=== PATIENT | female | born 2005 | race Caucasian/White ===

== ENCOUNTER 2023-09-13 18:19 | Emergency (ER) | payer MEDICARE, MEDICAID, SELFPAY ==
[2023-09-13 18:23] VITALS: BP 138/91; PULSE 106; TEMP 37; O2SAT 97
--- NOTE | 2023-09-13 18:38 | PC.NURSE ---
patient reports she was recently treated for strep throat, is currently on augmentin for this. patient began having vomiting and right sided abdominal pain that began today with 8 episodes of vomiting after eating mashed potatoes. Patient sitting in bed in no distress, talking about her hair color as this nurse as she attempts to assess patient.
--- NOTE | 2023-09-13 19:14 | CT_ITS ---
The [place] [id number] Patient Name: YOHANNES ALCALA MRN: [id number] date: 2005 Sex: F Assigned Patient Location: ER Current Patient Location: ER Accession/Order Number: [id number] Exam Date: 09/13/2023 20:10 Report Date: 09/13/2023 20:49 At the request of: MELANIE MARKER Procedure: CT abdomen pelvis w con EXAM: CT abdomen pelvis w con HISTORY: RLQ abd pain COMPARISON: None. TECHNIQUE: IV contrast enhanced CT imaging of the abdomen and pelvis. This CT exam was performed using one or more of the following dose reduction techniques: Automated exposure control, adjustment of the mA and/or KV according to patient size, or use of iterative reconstruction technique. Unless otherwise stated, incidental findings do not require dedicated follow-up imaging. FINDINGS: There is bibasilar atelectasis. The heart size is normal. There is diffuse hepatic steatosis. The spleen, pancreas, adrenal glands, and kidneys are normal. The gallbladder is distended. The bowel is unobstructed. The appendix is normal. The bladder is distended and within normal limits. The bones are intact without acute abnormality. There is S-shaped scoliotic curvature of the thoracolumbar spine. CT/CT abdomen pelvis w con IMPRESSION: 1. No acute abnormality of the abdomen or pelvis. 2. Hepatic steatosis. Electronically authenticated by: CASTRO CORTES Date: 09/13/2023 20:49
--- NOTE | 2023-09-13 19:15 | ED.ABDPAIN1 ---
HPI - Abdominal Pain General Chief Complaint: Abdominal Pain Stated Complaint: Abdominal Pain Time Seen by Provider: 09/13/23 19:06 Source: patient Mode of arrival: ambulance Limitations: no limitations History of Present Illness HPI narrative: This 18-year-old female with a history of ADHD, hypertension and autism presents for evaluation of nausea vomiting and diarrhea that started earlier today. She states she has vomited approximately 8 times and had the same number of episodes of diarrhea. There was a small amount of blood in some of her diarrhea. She is having right lower quadrant abdominal pain. She tested positive for strep throat at [facility] last Tuesday and has been taking Augmentin. She has on day 6 of . She states she has never taken Augmentin before. Her sore throat is better. She is not having a fever. She doubts the possibility of . She has some mid lower abdominal pain as well. She has never had any abdominal surgery. Related Data Home Medications ?Medication ?Instructions ?Recorded ?Confirmed alprazolam 0.25 mg tablet mg 09/13/23 ammonium lactate 12 % topical cream applic topical 09/13/23 amoxicillin 500 mg capsule mg 09/13/23 amoxicillin 875 mg-potassium tab 09/13/23 clavulanate 125 mg tablet budesonide-formoterol HFA 160 inhalation 09/13/23 mcg-4.5 mcg/actuation aerosol inhaler (Symbicort) cetirizine 10 mg tablet (Allergy mg 09/13/23 Relief (cetirizine)) clobetasol 0.05 % topical cream topical 09/13/23 clonidine HCl 0.2 mg tablet mg 09/13/23 cyclobenzaprine 10 mg tablet mg 09/13/23 diphenhydramine HCl 25 mg capsule mg 09/13/23 (Banophen) doxycycline hyclate 100 mg capsule mg 09/13/23 escitalopram oxalate 10 mg tablet mg 09/13/23 escitalopram oxalate 20 mg tablet mg 09/13/23 fluconazole 150 mg tablet mg 09/13/23 gabapentin 100 mg capsule mg 09/13/23 gabapentin 300 mg capsule mg 09/13/23 hydrocortisone 2.5 % topical cream 09/13/23 with perineal applicator hydroxyzine HCl 25 mg tablet mg 09/13/23 ibuprofen 800 mg tablet mg 09/13/23 insulin aspart U-100 100 unit/mL subcut 09/13/23 (3 mL) subcutaneous pen (Novolog FlexPen U-100 Insulin aspart) insulin glargine 100 unit/mL (3 unit subcut 09/13/23 mL) subcutaneous pen (Lantus Solostar U-100 Insulin) insulin lispro 100 unit/mL subcut 09/13/23 subcutaneous pen lamotrigine 100 mg tablet mg 09/13/23 lamotrigine 25 mg tablet mg 09/13/23 lidocaine 5 % topical patch patch 09/13/23 lisdexamfetamine 50 mg capsule mg 09/13/23 (Vyvanse) melatonin 3 mg tablet mg 09/13/23 melatonin 3 mg tablet,extended mg PO 09/13/23 release metoclopramide HCl 10 mg tablet mg 09/13/23 metoclopramide HCl 5 mg tablet mg 09/13/23 modafinil 100 mg tablet mg 09/13/23 modafinil 200 mg tablet mg 09/13/23 nystatin 100,000 unit/gram topical topical 09/13/23 ointment nystatin 100,000 unit/gram topical topical 09/13/23 powder (Nystop) pantoprazole 40 mg tablet,delayed mg PO 09/13/23 release pregabalin 25 mg capsule mg 09/13/23 sumatriptan succinate 100 mg tablet mg PO 09/13/23 tiotropium bromide 1.25 inhalation 09/13/23 mcg/actuation mist for inhalation (Spiriva Respimat) tizanidine 2 mg tablet mg 09/13/23 topiramate 100 mg tablet mg 09/13/23 trazodone 50 mg tablet mg 09/13/23 Allergies Allergy/AdvReac Type Severity Reaction Status Date / Time cefoperazone Allergy Mild Hives Verified 09/13/23 18:23 Review of Systems ROS Status of ROS 10 or more systems reviewed and unremarkable except as noted in history and below Exam Narrative Exam Narrative: Vital signs and Nursing Notes reviewed: Patient is afebrile, she is tachycardic with a pulse of 106, blood pressure is normal, she is not hypoxic with pulse ox of 97% on room air General: Awake, alert, oriented, no acute distress, lying comfortably on the stretcher HEENT: Normocephalic atraumatic, mucous membranes are moist and pink, eyes are clear, normal conjunctiva, vision is grossly intact, posterior pharynx is normal in appearance. There is no swelling of the tongue, uvular pharyngeal soft tissues. No pharyngeal exudate or peritonsillar abscess appreciated Neck: Supple, no meningeal signs, no anterior or posterior cervical lymphadenopathy Chest: Lungs are clear to auscultation with good air entry, there is no wheezing rhonchi or rales appreciated no accessory muscle use, patient is speaking in complete sentences-no chest wall tenderness to palpation CVS: Regular rate and rhythm S1-S2, no murmurs rubs or gallops, pulses are brisk and equal bilaterally ABD: Soft, diffusely tender, localizes to the left lower quadrant and left right lower quadrant, negative Rovsing exam, bowel sounds are normal Extremities: Moving all extremities, no lower extremity tenderness or swelling noted, negative Homans' sign, pulses are brisk and equal bilaterally Skin: Normal in appearance without rash,pallor, petechiae or purpura Neuro: No focal deficits Psych: Mildly anxious, laughing inappropriately Constitutional Vital Signs, click to edit/add: Last Vital Signs Temp 98.6 F 09/13/23 18:23 Pulse 106 H 09/13/23 18:23 Resp 17 09/13/23 18:23 BP 138/91 09/13/23 18:23 Pulse Ox 97 09/13/23 18:23 Course Vital Signs Vital signs: Vital Signs Temperature 98.6 F 09/13/23 18:23 Pulse Rate 106 H 09/13/23 18:23 Respiratory Rate 17 09/13/23 18:23 Blood Pressure 138/91 09/13/23 18:23 Pulse Oximetry 97 09/13/23 18:23 Temperature 98.6 F 09/13/23 18:23 Pulse Rate 106 H 09/13/23 18:23 Respiratory Rate 17 09/13/23 18:23 Blood Pressure 138/91 09/13/23 18:23 Pulse Oximetry 97 09/13/23 18:23 MDM - Abdominal Pain MDM Narrative Medical decision making narrative: This 18-year-old female, nondrinker, non-smoker presents for evaluation of nausea, vomiting, diarrhea and right lower quadrant abdominal pain. She has not had a fever or cough. She is currently on day 6 out of 10 of Augmentin for strep throat. She states she has not had Augmentin in the past. She denies the possibility of . She states she cannot keep anything down. In the emergency department an IV was placed and she was medicated with IV fluids Zofran and Toradol. She denied any relief of her pain from this. She was then medicated with Levsin. Routine labs were ordered and are reviewed. Her white count is minimally elevated at 13.7 with a normal hemoglobin. Lipase is minimally elevated at 99 and alkaline phosphatase is mildly elevated at 144. The remainder of her liver function enzymes are normal. Her glucose is minimally elevated at 195. She does have a history of diabetes. There is no sign of DKA. Lactic acid was minimally elevated at 2.2, likely related to her vomiting and diarrhea. Urine was negative for infection. CT scan of the abdomen pelvis was ordered with IV contrast to rule out appendicitis or other etiology for her pain. The CT scan shows fatty liver disease and is otherwise normal. She does have a scoliotic curve which she was aware of. The results of the CT scan were discussed with her and she was given a copy of her scan for her records. She will be discharged home with prescription for Zofran and Bentyl. She was encouraged to drink plenty of clear liquids and follow-up closely with her family physician. Medical Records Medical records narrative: The [address] [address] [address] Scan Report Signed Patient: YOHANNES ALCALA MR#: [id number] : 2005 Acct:[id number] Age/Sex: 18 / F ADM Date: 09/13/23 Loc: ER Attending Dr: Ordering Physician: Mleanie Zamora Date of Service: 09/13/23 Procedure(s): CT abdomen pelvis w con Accession Number(s): [id number] cc: Ritu Chambers ND~ The [address] [address] Patient Name: YOHANNES ALCALA MRN: [id number] date: 2005 Sex: F Assigned Patient Location: ER Current Patient Location: ER Accession/Order Number: [id number] Exam Date: 09/13/2023 20:10 Report Date: 09/13/2023 20:49 At the request of: MELANIE ZAMORA Procedure: CT abdomen pelvis w con EXAM: CT abdomen pelvis w con HISTORY: RLQ abd pain COMPARISON: None. TECHNIQUE: IV contrast enhanced CT imaging of the abdomen and pelvis. This CT exam was performed using one or more of the following dose reduction techniques: Automated exposure control, adjustment of the mA and/or KV according to patient size, or use of iterative reconstruction technique. Unless otherwise stated, incidental findings do not require dedicated follow-up imaging. FINDINGS: There is bibasilar atelectasis. The heart size is normal. There is diffuse hepatic steatosis. The spleen, pancreas, adrenal glands, and kidneys are normal. The gallbladder is distended. The bowel is unobstructed. The appendix is normal. The bladder is distended and within normal limits. The bones are intact without acute abnormality. There is S-shaped scoliotic curvature of the thoracolumbar spine. CT/CT abdomen pelvis w con IMPRESSION: 1. No acute abnormality of the abdomen or pelvis. 2. Hepatic steatosis. Lab Data Labs: Lab Results 09/13/23 09/13/23 Range/Units 19:24 19:27 WBC 13.7 H (4.0-11.0) 10^3/uL RBC 5.81 H (4.20-5.40) 10^6/uL Hgb 13.0 (12.0-16.0) g/dL Hct 42.1 (36.0-48.0) % MCV 72.5 L (81.0-99.0) fL MCH 22.4 L (26.7-34.0) pg MCHC 30.9 (29.9-35.2) g/dL RDW 14.8 (11.0-15.0) % Plt Count 421 (150-450) 10^3/uL MPV 8.9 L (9.5-13.5) fL Neut % (Auto) 76.0 H (43.0-75.0) % Lymph % (Auto) 16.5 L (20.5-60.0) % [place] % (Auto) 4.5 (1.7-12.0) % Eos % (Auto) 1.4 (0.9-7.0) % Baso % (Auto) 0.6 (0.2-2.0) % Neut # (Auto) 10.4 H (1.4-6.5) 10^3/uL Lymph # (Auto) 2.3 (1.2-3.8) 10^3/uL [place] # (Auto) 0.6 (0.3-0.8) 10^3/uL Eos # (Auto) 0.2 (0.0-0.7) 10^3/uL Baso # (Auto) 0.1 (0.0-0.1) 10^3/uL Abs Immat Gran (auto) 0.13 H (0.00-0.03) 10^3/uL Imm/Tot Granulo (auto) 1.0 H (0.0-0.5) % Sodium 137 (136-145) mmol/L Potassium 3.4 L (3.5-5.1) mmol/L Chloride 103 (98-107) mmol/L Carbon Dioxide 23.2 (21.0-32.0) mmol/L Anion Gap 14.2 BUN 9.0 (7.0-18.0) mg/dL Creatinine 0.87 (0.55-1.02) mg/dL Est GFR ( Amer) >60 (>=60) Est GFR (Non-Af Amer) >60 (>=60) BUN/Creatinine Ratio 10.3 Glucose 195 H (74-106) mg/dL Lactate 2.2 H* (0.4-2.0) mmol/L Calcium 9.1 (8.5-10.1) mg/dL Total Bilirubin 0.3 (0.2-1.0) mg/dL AST 19 (15-37) U/L ALT 39 (14-59) U/L Alkaline Phosphatase 144 H (46-116) U/L Troponin I High Sens <4.0 L (4.0-51.3) pg/mL Total Protein 8.2 (6.4-8.2) g/dL Albumin 3.4 (3.4-5.0) g/dL Globulin 4.8 g/dL Albumin/Globulin Ratio 0.7 Lipase 99.0 H (16.0-77.0) U/L Urine Color Lt. yellow (YELLOW) Urine Clarity Clear (CLEAR) Urine pH 6.0 (5.0-9.0) Ur Specific [place] 1.020 (1.005-1.025) Urine Protein Negative (NEG/TRACE) mg/dL Urine Glucose (UA) Negative (NEGATIVE) mg/dL Urine Ketones Negative (NEGATIVE) mg/dL Urine Occult Blood Trace-i (NEGATIVE) Urine Nitrite Negative (NEGATIVE) Urine Bilirubin Negative (NEGATIVE) Urine Urobilinogen 0.2 (0.2-1.0) EU/dL Ur Leukocyte Esterase Negative (NEGATIVE) Urine RBC 0-2 (0-2) #/HPF Urine WBC 0-2 A (NONE SEEN) #/HPF Ur Squamous Epith Cells Moderate A (NONE/RARE) #/LPF Ur Transition Epith Cell Few A (NONE SEEN) #/LPF Urine Crystals None seen (None Seen) #/HPF Urine Bacteria None seen (NONE SEEN) #/HPF Urine Casts None seen (NONE SEEN) #/LPF Urine Mucus None seen (NONE SEEN) Ur Culture Indicated? No Urine HCG, Qual Negative (NEGATIVE) Discharge Plan Discharge Stand Alone Forms: Portal Instructions Chief Complaint: Abdominal Pain Clinical Impression: Gastroenteritis, Fatty liver disease, nonalcoholic Patient Disposition: Home, Self-Care Time of Disposition Decision: 21:18 Condition: Good Prescriptions / Home Meds: No Action cyclobenzaprine 10 mg tablet amoxicillin 500 mg capsule doxycycline hyclate 100 mg capsule tizanidine 2 mg tablet trazodone 50 mg tablet cetirizine [Allergy Relief (cetirizine)] 10 mg tablet ibuprofen 800 mg tablet nystatin 100,000 unit/gram ointment TOPICAL fluconazole 150 mg tablet sumatriptan succinate 100 mg tablet PO clobetasol 0.05 % cream TOPICAL melatonin 3 mg tablet lamotrigine 25 mg tablet hydrocortisone 2.5 % cream with perineal applicator clonidine HCl 0.2 mg tablet alprazolam 0.25 mg tablet modafinil 200 mg tablet metoclopramide HCl 5 mg tablet pantoprazole 40 mg tablet,delayed release (DR/EC) PO diphenhydramine HCl [Banophen] 25 mg capsule lidocaine 5 % adhesive patch,medicated gabapentin 300 mg capsule hydroxyzine HCl 25 mg tablet ammonium lactate 12 % cream TOPICAL gabapentin 100 mg capsule nystatin [Nystop] 100,000 unit/gram powder TOPICAL topiramate 100 mg tablet lamotrigine 100 mg tablet metoclopramide HCl 10 mg tablet amoxicillin-pot clavulanate 875-125 mg tablet modafinil 100 mg tablet melatonin 3 mg tablet extended release PO insulin lispro 100 unit/mL insulin pen SUBCUT escitalopram oxalate 10 mg tablet escitalopram oxalate 20 mg tablet insulin aspart U-100 [Novolog FlexPen U-100 Insulin] 100 unit/mL (3 mL) insulin pen SUBCUT pregabalin 25 mg capsule lisdexamfetamine [Vyvanse] 50 mg capsule budesonide-formoterol [Symbicort] 160-4.5 mcg/actuation HFA aerosol inhaler INHALATION insulin glargine [Lantus Solostar U-100 Insulin] 100 unit/mL (3 mL) insulin pen SUBCUT Spiriva Respimat 1.25 mcg/actuation mist INHALATION Print Language: Latvian Instructions: Acute Nausea and Vomiting (ED), Acute Diarrhea (ED), Non-Alcoholic Fatty Liver Disease (ED) Referrals: Ritu Chambers ND [Primary Care Provider] - 1 week
[2023-09-13 19:34] LABS: Basophils Absolute Auto 0.1 10^3/uL (0.0-0.1); Basophils Percent Auto 0.6 % (0.2-2.0); Eosinophils Absolute Auto 0.2 10^3/uL (0.0-0.7); Eosinophils Percent Auto 1.4 % (0.9-7.0); Hematocrit 42.1 % (36.0-48.0); Immature Granulocytes Abs Auto 0.13 10^3/uL (0.00-0.03); Lymphocytes Absolute Auto 2.3 10^3/uL (1.2-3.8); Lymphocytes Percent Auto 16.5 % (20.5-60.0); Mean Corpuscular HGB Conc 30.9 g/dL (29.9-35.2); Mean Corpuscular Hemoglobin 22.4 pg (26.7-34.0); Mean Corpuscular Volume 72.5 fL (81.0-99.0); Mean Platelet Volume 8.9 fL (9.5-13.5); Monocytes Absolute Auto 0.6 10^3/uL (0.3-0.8); Monocytes Percent Auto 4.5 % (1.7-12.0); Neutrophils Absolute Auto 10.4 10^3/uL (1.4-6.5); Platelet Count 421 10^3/uL (150-450); Red Blood Count 5.81 10^6/uL (4.20-5.40); Red Cell Distribution Width 14.8 % (11.0-15.0); White Blood Count 13.7 10^3/uL (4.0-11.0)
[2023-09-13 19:35] LABS: Bilirubin Urine NEGATIVE (NEGATIVE); Blood Urine TRACE-I (NEGATIVE); Clarity Urine CLEAR (CLEAR); Color Urine LT. YELLOW (YELLOW); Glucose Urine UA NEGATIVE (NEGATIVE); Ketones Urine NEGATIVE (NEGATIVE); Leukocyte Esterase Urine NEGATIVE (NEGATIVE); Nitrite Urine NEGATIVE (NEGATIVE); Protein Urine NEGATIVE (NEG/TRACE); Urobilinogen Urine 0.2 EU/dL (0.2-1.0)
[2023-09-13 19:39] LABS: Urine Microscopic Indicated YES
[2023-09-13 19:41] LABS: Bacteria Urine NONE SEEN #/HPF (NONE SEEN); Cast Seen? NONE SEEN #/LPF (NONE SEEN); Crystals Seen? None Seen #/HPF (None Seen); Mucus Urine NONE SEEN (NONE SEEN); RBC Urine 0-2 #/HPF (0-2); Squamous Epithelial Cell Urine MODERATE #/LPF (NONE/RARE); Transitional Epi Cells Urine FEW #/LPF (NONE SEEN); Urine Culture Indicated NO; WBC Urine 0-2 #/HPF (NONE SEEN)
[2023-09-13] MEDS: ONDANSETRON PF 4 MG/2 ML VIAL IV (19:46)
[2023-09-13] MEDS: 0.9 % SODIUM CHLORIDE 1,000 ML 999 ML IV (19:46)
[2023-09-13 19:57] LABS: Alanine Aminotransferase 39 U/L (14-59); Albumin Globulin Ratio 0.7; Albumin Level 3.4 g/dL (3.4-5.0); Alkaline Phosphatase 144 U/L (46-116); Anion Gap 14.2; Aspartate Amino Transferase 19 U/L (15-37); BUN Creatinine Ratio 10.3; Bilirubin Total 0.3 mg/dL (0.2-1.0); Calcium 9.1 mg/dL (8.5-10.1); Carbon Dioxide 23.2 mmol/L (21.0-32.0); Chloride 103 mmol/L (98-107); Estimated GFR (African America >60 (>=60); Estimated GFR (Non-African Ame >60 (>=60); Globulin 4.8 g/dL; Glucose 195 mg/dL (74-106); Potassium 3.4 mmol/L (3.5-5.1); Sodium 137 mmol/L (136-145); Total Protein 8.2 g/dL (6.4-8.2)
[2023-09-13 20:00] LABS: HCG Qualitative Urine* NEGATIVE (NEGATIVE); Internal Control Within Normal Limits
[2023-09-13 20:00] LABS: Troponin I High Sensitivity <4.0 pg/mL (4.0-51.3)
[2023-09-13 20:03] LABS: Lactate/Lactic Acid 2.2 mmol/L (0.4-2.0)
[2023-09-13] MEDS: KETOROLAC TROMETHAMINE 30 MG/ML VIAL IVP (20:03)
[2023-09-13] MEDS: HYOSCYAMINE SULFATE 0.125 MG TAB.SUBL SL (20:52)
[2023-09-13 21:28] VITALS: BP 144/88; PULSE 72; O2SAT 100
== END 2023-09-13 21:30 | disposition home or self-care (01) ==
PROVIDERS: Emergency Provider Emergency Medicine; PCP Student in an Organized Health Care Education/Training Program
DX: K52.9 Noninfective gastroenteritis and colitis, unspecified (principal); K76.0 Fatty (change of) liver, not elsewhere classified; F90.9 Attention-deficit hyperactivity disorder, unspecified type; I10 Essential (primary) hypertension; F84.0 Autistic disorder
CPT/HCPCS: 36415; 74177; 80053; 81001; 83605; 83690; 84484; 84703; 85025; 96361; 96374; 96375; 99285; J1885; J2405; Q9967

== ENCOUNTER 2024-05-23 20:04 | Emergency (ER) | payer MEDICARE, MEDICAID, SELFPAY ==
[2024-05-23 20:07] VITALS: BP 122/74; PULSE 84; TEMP 37; O2SAT 98; BMI 38.1
--- NOTE | 2024-05-23 20:07 | ECG_ITS ---
The [facility] Test Date: 2024-05-23 Pat Name: YOHANNES ALCALA Department: Room: - Gender: Female Probate Lawyer: : 2005 Requested By: Order Number: [id number] Reading MD: GEE EUBANKS Measurements Intervals Ward Rate: 85 P: 32 CA: 152 QRS: 50 QRSD: 100 T: 90 QT: 374 QTc: 416 Interpretive Statements 1100 Sinus rhythm 4068 Nonspecific [place] abnormality 9130 borderline ECG No previous ECG available for comparison Electronically Signed On 05-24-2024 6:48:26 EST by GEE EUBANKS
[2024-05-23 20:10] VITALS: PULSE 85
--- NOTE | 2024-05-23 20:13 | ED.CHESTPAI1 ---
Documented by User: TORY Bhatti 05/23/24 21:08 HPI - Chest Pain General Chief Complaint: Chest Pain Stated Complaint: chest pain Time Seen by Provider: 05/23/24 20:07 Source: patient Mode of arrival: ambulance Limitations: no limitations History of Present Illness HPI narrative: Patient is a 19-year-old female who presents to the emergency department by EMS from [place] where she lives for evaluation of chest pain. EMS states privately in the hallway that the patient has called 911 to take her to [facility] almost every day this month for chest pain. They are in process to have a meeting with her with the director of EMS regarding abuse of EMS resources. She apparently went to [place] emergency department yesterday but was kept in the lobby where she had labs and an EKG performed. She felt she was not treated appropriately because she waited so long to be seen. She ended up leaving without being evaluated by provider. She reports the pain in the center of her chest associated with shortness of breath. She has had no fevers, cough, congestion. She denies tobacco abuse. She has no concern for . She states the pain radiates into both arms. She has a history of anxiety but does not know if this feels similar to previous anxiety. She has an appointment with her psychiatrist for new medications tomorrow. Related Data Home Medications ?Medication ?Instructions ?Recorded ?Confirmed alprazolam 0.25 mg tablet mg 09/13/23 ammonium lactate 12 % topical cream applic topical 09/13/23 amoxicillin 500 mg capsule mg 09/13/23 amoxicillin 875 mg-potassium tab 09/13/23 clavulanate 125 mg tablet budesonide-formoterol HFA 160 inhalation 09/13/23 mcg-4.5 mcg/actuation aerosol inhaler (Symbicort) cetirizine 10 mg tablet (Allergy mg 09/13/23 Relief (cetirizine)) clobetasol 0.05 % topical cream topical 09/13/23 clonidine HCl 0.2 mg tablet mg 09/13/23 cyclobenzaprine 10 mg tablet mg 09/13/23 diphenhydramine HCl 25 mg capsule mg 09/13/23 (Banophen) doxycycline hyclate 100 mg capsule mg 09/13/23 escitalopram oxalate 10 mg tablet mg 09/13/23 escitalopram oxalate 20 mg tablet mg 09/13/23 fluconazole 150 mg tablet mg 09/13/23 gabapentin 100 mg capsule mg 09/13/23 gabapentin 300 mg capsule mg 09/13/23 hydrocortisone 2.5 % topical cream 09/13/23 with perineal applicator hydroxyzine HCl 25 mg tablet mg 09/13/23 ibuprofen 800 mg tablet mg 09/13/23 insulin aspart U-100 100 unit/mL subcut 09/13/23 (3 mL) subcutaneous pen (Novolog FlexPen U-100 Insulin aspart) insulin glargine 100 unit/mL (3 unit subcut 09/13/23 mL) subcutaneous pen (Lantus Solostar U-100 Insulin) insulin lispro 100 unit/mL subcut 09/13/23 subcutaneous pen lamotrigine 100 mg tablet mg 09/13/23 lamotrigine 25 mg tablet mg 09/13/23 lidocaine 5 % topical patch patch 09/13/23 lisdexamfetamine 50 mg capsule mg 09/13/23 (Vyvanse) melatonin 3 mg tablet mg 09/13/23 melatonin 3 mg tablet,extended mg PO 09/13/23 release metoclopramide HCl 10 mg tablet mg 09/13/23 metoclopramide HCl 5 mg tablet mg 09/13/23 modafinil 100 mg tablet mg 09/13/23 modafinil 200 mg tablet mg 09/13/23 nystatin 100,000 unit/gram topical topical 09/13/23 ointment nystatin 100,000 unit/gram topical topical 09/13/23 powder (Nystop) pantoprazole 40 mg tablet,delayed mg PO 09/13/23 release pregabalin 25 mg capsule mg 09/13/23 sumatriptan succinate 100 mg tablet mg PO 09/13/23 tiotropium bromide 1.25 inhalation 09/13/23 mcg/actuation mist for inhalation (Spiriva Respimat) tizanidine 2 mg tablet mg 09/13/23 topiramate 100 mg tablet mg 09/13/23 trazodone 50 mg tablet mg 09/13/23 Allergies Allergy/AdvReac Type Severity Reaction Status Date / Time cefoperazone Allergy Mild Hives Verified 05/23/24 20:07 Review of Systems ROS Constitutional Denies: fever or chills Ears, nose, mouth, and throat Denies: throat pain or nasal congestion Cardiovascular Reports: chest pain Respiratory Reports: shortness of breath; Denies: cough Gastrointestinal Denies: nausea or vomiting Musculoskeletal Denies: back pain Integumentary/Breast Denies: rash Neurological Denies: numbness in extremities or weakness in extremities Hematologic/Lymphatic Denies: easy bruising or easy bleeding [facility] Social History Little interest or pleasure in doing things: not at all Feeling down, depressed, or hopeless: not at all Exam Narrative Exam Narrative: Gen.: Awake, alert, in no distress Head: Normocephalic, atraumatic ENT: Moist mucous membranes Respiratory: No respiratory distress, lungs clear bilaterally Cardio: Regular rate and rhythm Gastrointestinal: Abdomen is soft, nondistended and nontender to palpation Extremities: Moves extremities equally, no injuries noted Psych: Normal mood and affect Neuro: No focal neuro deficit Skin: Warm, dry, intact Constitutional Vital Signs, click to edit/add: Last Vital Signs Temp 98.6 F 05/23/24 20:07 Pulse 84 05/23/24 20:07 Resp 16 05/23/24 20:07 BP 122/74 05/23/24 20:07 Pulse Ox 98 05/23/24 20:07 O2 Del Method Room Air 05/23/24 20:07 Course Vital Signs Vital signs: Vital Signs Temperature 98.6 F 05/23/24 20:07 Pulse Rate 84 05/23/24 20:07 Respiratory Rate 16 05/23/24 20:07 Blood Pressure 122/74 05/23/24 20:07 Pulse Oximetry 98 05/23/24 20:07 Oxygen Delivery Method Room Air 05/23/24 20:07 Temperature 98.6 F 05/23/24 20:07 Pulse Rate 84 05/23/24 20:07 Respiratory Rate 16 05/23/24 20:07 Blood Pressure 122/74 05/23/24 20:07 Pulse Oximetry 98 05/23/24 20:07 Oxygen Delivery Method Room Air 05/23/24 20:07 MDM - Chest Pain MDM Narrative Medical decision making narrative: 2106: EKG obtained, laboratory studies reviewed and noted within normal limits. IV access is being attempted to determine if the patient can have a scan of her chest if needed. Records obtained from [place]. GI cocktail ordered for the patient. Case is turned over to attending physician at this time for disposition. SHARED APC VISIT, PHYSICIAN ATTESTATION: [id number] I performed a substantive part of the MDM during the patient?s E/M visit. I personally evaluated and examined the patient. I personally made or approved the documented management plan and acknowledge its risk of complications. Medical Records Data Attestation: I reviewed the patient's medical records. Lab Data Attestation: I reviewed the patient's lab results. Labs: Lab Results 05/23/24 05/23/24 Range/Units 20:20 20:40 WBC 9.4 (4.0-11.0) 10^3/uL RBC 5.29 (4.20-5.40) 10^6/uL Hgb 11.6 L (12.0-16.0) g/dL Hct 38.7 (36.0-48.0) % MCV 73.2 L (81.0-99.0) fL MCH 21.9 L (26.7-34.0) pg MCHC 30.0 (29.9-35.2) g/dL RDW 15.8 H (11.0-15.0) % Plt Count 326 (150-450) 10^3/uL MPV 9.0 L (9.5-13.5) fL Neut % (Auto) 67.6 (43.0-75.0) % Lymph % (Auto) 21.4 (20.5-60.0) % [place] % (Auto) 6.4 (1.7-12.0) % Eos % (Auto) 3.0 (0.9-7.0) % Baso % (Auto) 0.7 (0.2-2.0) % Neut # (Auto) 6.3 (1.4-6.5) 10^3/uL Lymph # (Auto) 2.0 (1.2-3.8) 10^3/uL [place] # (Auto) 0.6 (0.3-0.8) 10^3/uL Eos # (Auto) 0.3 (0.0-0.7) 10^3/uL Baso # (Auto) 0.1 (0.0-0.1) 10^3/uL Abs Immat Gran (auto) 0.08 H (0.00-0.03) 10^3/uL Imm/Tot Granulo (auto) 0.9 H (0.0-0.5) % PT 10.7 (9.0-11.6) sec INR 1.01 VBG pH 7.383 (7.330-7.430) VBG pCO2 40.6 (40.0-52.0) mmHg Sodium 140 (136-145) mmol/L Potassium 4.1 (3.5-5.1) mmol/L Chloride 105 (98-107) mmol/L Carbon Dioxide 24.4 (21.0-32.0) mmol/L Anion Gap 14.7 BUN 12.0 (7.0-18.0) mg/dL Creatinine 0.80 (0.55-1.02) mg/dL Est GFR ( Amer) >60 (>=60 mL/min/1.73m^2) Est GFR (Non-Af Amer) >60 (>=60 mL/min/1.73m^2) BUN/Creatinine Ratio 15.0 Glucose 153 H (74-106) mg/dL Lactate 1.5 (0.4-2.0) mmol/L Calcium 9.1 (8.5-10.1) mg/dL Magnesium 1.9 (1.8-2.4) mg/dL Total Bilirubin 0.2 (0.2-1.0) mg/dL AST 27 (15-37) U/L ALT 31 (14-59) U/L Alkaline Phosphatase 110 (46-116) U/L Troponin I High Sens <4.0 L (4.0-51.3) pg/mL NT-Pro-B Natriuret Pep 16.0 (<=450.0) pg/mL Total Protein 7.4 (6.4-8.2) g/dL Albumin 3.1 L (3.4-5.0) g/dL Globulin 4.3 g/dL Albumin/Globulin Ratio 0.7 TSH 1.461 (0.358-3.740) uIU/mL Urine Color Lt. yellow (YELLOW) Urine Clarity Cloudy A (CLEAR) Urine pH 7.5 (5.0-9.0) Ur Specific Bascom 1.015 (1.005-1.025) Urine Protein Trace (NEG/TRACE) mg/dL Urine Glucose (UA) Negative (NEGATIVE) mg/dL Urine Ketones Negative (NEGATIVE) mg/dL Urine Occult Blood Large A (NEGATIVE) Urine Nitrite Negative (NEGATIVE) Urine Bilirubin Negative (NEGATIVE) Urine Urobilinogen 0.2 (0.2-1.0) EU/dL Ur Leukocyte Esterase Negative (NEGATIVE) Urine RBC 50-75 A (0-2) #/HPF Urine WBC 0-2 A (NONE SEEN) #/HPF Ur Squamous Epith Cells Few A (NONE/RARE) #/LPF Urine Crystals Seen A (None Seen) #/HPF Amorphous Sediment Many Urine Bacteria Moderate A (NONE SEEN) #/HPF Urine Casts None seen (NONE SEEN) #/LPF Urine Mucus None seen (NONE SEEN) Ur Culture Indicated? Yes-[facility] [place] Acetone, Qual Negative (NEGATIVE) ECG Data Attestation: I personally reviewed and interpreted this ECG as follows: (Normal sinus rhythm at a rate of 85, no acute ST elevation or ectopy. EKG reviewed by attending physician) Discharge Plan Discharge Chief Complaint: Chest Pain Clinical Impression: Chest pain Patient Disposition: Home, Self-Care Time of Disposition Decision: 22:25 Condition: Good Mode of Transportation: Private Vehicle Prescriptions / Home Meds: No Action cyclobenzaprine 10 mg tablet amoxicillin 500 mg capsule doxycycline hyclate 100 mg capsule tizanidine 2 mg tablet trazodone 50 mg tablet cetirizine [Allergy Relief (cetirizine)] 10 mg tablet ibuprofen 800 mg tablet nystatin 100,000 unit/gram ointment TOPICAL fluconazole 150 mg tablet sumatriptan succinate 100 mg tablet PO clobetasol 0.05 % cream TOPICAL melatonin 3 mg tablet lamotrigine 25 mg tablet hydrocortisone 2.5 % cream with perineal applicator clonidine HCl 0.2 mg tablet alprazolam 0.25 mg tablet modafinil 200 mg tablet metoclopramide HCl 5 mg tablet pantoprazole 40 mg tablet,delayed release (DR/EC) PO diphenhydramine HCl [Banophen] 25 mg capsule lidocaine 5 % adhesive patch,medicated gabapentin 300 mg capsule hydroxyzine HCl 25 mg tablet ammonium lactate 12 % cream TOPICAL gabapentin 100 mg capsule nystatin [Nystop] 100,000 unit/gram powder TOPICAL topiramate 100 mg tablet lamotrigine 100 mg tablet metoclopramide HCl 10 mg tablet amoxicillin-pot clavulanate 875-125 mg tablet modafinil 100 mg tablet melatonin 3 mg tablet extended release PO insulin lispro 100 unit/mL insulin pen SUBCUT escitalopram oxalate 10 mg tablet escitalopram oxalate 20 mg tablet insulin aspart U-100 [Novolog FlexPen U-100 Insulin] 100 unit/mL (3 mL) insulin pen SUBCUT pregabalin 25 mg capsule lisdexamfetamine [Vyvanse] 50 mg capsule budesonide-formoterol [Symbicort] 160-4.5 mcg/actuation HFA aerosol inhaler INHALATION insulin glargine [Lantus Solostar U-100 Insulin] 100 unit/mL (3 mL) insulin pen SUBCUT Spiriva Respimat 1.25 mcg/actuation mist INHALATION Print Language: Liberian Instructions: Chest Pain (ED) Additional Instructions: Follow-up with your PCP Referrals: Ritu Chambers ND [Primary Care Provider] - 1 week Documented by User: Cristhian Chance MD 05/23/24 22:26 HPI - Chest Pain General Chief Complaint: Chest Pain Stated Complaint: chest pain Time Seen by Provider: 05/23/24 20:07 Related Data Home Medications ?Medication ?Instructions ?Recorded ?Confirmed alprazolam 0.25 mg tablet mg 09/13/23 ammonium lactate 12 % topical cream applic topical 09/13/23 amoxicillin 500 mg capsule mg 09/13/23 amoxicillin 875 mg-potassium tab 09/13/23 clavulanate 125 mg tablet budesonide-formoterol HFA 160 inhalation 09/13/23 mcg-4.5 mcg/actuation aerosol inhaler (Symbicort) cetirizine 10 mg tablet (Allergy mg 09/13/23 Relief (cetirizine)) clobetasol 0.05 % topical cream topical 09/13/23 clonidine HCl 0.2 mg tablet mg 09/13/23 cyclobenzaprine 10 mg tablet mg 09/13/23 diphenhydramine HCl 25 mg capsule mg 09/13/23 (Banophen) doxycycline hyclate 100 mg capsule mg 09/13/23 escitalopram oxalate 10 mg tablet mg 09/13/23 escitalopram oxalate 20 mg tablet mg 09/13/23 fluconazole 150 mg tablet mg 09/13/23 gabapentin 100 mg capsule mg 09/13/23 gabapentin 300 mg capsule mg 09/13/23 hydrocortisone 2.5 % topical cream 09/13/23 with perineal applicator hydroxyzine HCl 25 mg tablet mg 09/13/23 ibuprofen 800 mg tablet mg 09/13/23 insulin aspart U-100 100 unit/mL subcut 09/13/23 (3 mL) subcutaneous pen (Novolog FlexPen U-100 Insulin aspart) insulin glargine 100 unit/mL (3 unit subcut 09/13/23 mL) subcutaneous pen (Lantus Solostar U-100 Insulin) insulin lispro 100 unit/mL subcut 09/13/23 subcutaneous pen lamotrigine 100 mg tablet mg 09/13/23 lamotrigine 25 mg tablet mg 09/13/23 lidocaine 5 % topical patch patch 09/13/23 lisdexamfetamine 50 mg capsule mg 09/13/23 (Vyvanse) melatonin 3 mg tablet mg 09/13/23 melatonin 3 mg tablet,extended mg PO 09/13/23 release metoclopramide HCl 10 mg tablet mg 09/13/23 metoclopramide HCl 5 mg tablet mg 09/13/23 modafinil 100 mg tablet mg 09/13/23 modafinil 200 mg tablet mg 09/13/23 nystatin 100,000 unit/gram topical topical 09/13/23 ointment nystatin 100,000 unit/gram topical topical 09/13/23 powder (Nystop) pantoprazole 40 mg tablet,delayed mg PO 09/13/23 release pregabalin 25 mg capsule mg 09/13/23 sumatriptan succinate 100 mg tablet mg PO 09/13/23 tiotropium bromide 1.25 inhalation 09/13/23 mcg/actuation mist for inhalation (Spiriva Respimat) tizanidine 2 mg tablet mg 09/13/23 topiramate 100 mg tablet mg 09/13/23 trazodone 50 mg tablet mg 09/13/23 Allergies Allergy/AdvReac Type Severity Reaction Status Date / Time cefoperazone Allergy Mild Hives Verified 05/23/24 20:07 PFSH PFSH Social History Little interest or pleasure in doing things: not at all Feeling down, depressed, or hopeless: not at all Exam Constitutional Vital Signs, click to edit/add: Last Vital Signs Temp 98.6 F 05/23/24 20:07 Pulse 84 05/23/24 20:07 Resp 16 05/23/24 20:07 BP 122/74 05/23/24 20:07 Pulse Ox 98 05/23/24 20:07 O2 Del Method Room Air 05/23/24 20:07 Course Vital Signs Vital signs: Vital Signs Temperature 98.6 F 05/23/24 20:07 Pulse Rate 84 05/23/24 20:07 Respiratory Rate 16 05/23/24 20:07 Blood Pressure 122/74 05/23/24 20:07 Pulse Oximetry 98 05/23/24 20:07 Oxygen Delivery Method Room Air 05/23/24 20:07 Temperature 98.6 F 05/23/24 20:07 Pulse Rate 84 05/23/24 20:07 Respiratory Rate 16 05/23/24 20:07 Blood Pressure 122/74 05/23/24 20:07 Pulse Oximetry 98 05/23/24 20:07 Oxygen Delivery Method Room Air 05/23/24 20:07 MDM - Chest Pain MDM Narrative Medical decision making narrative: 2106: EKG obtained, laboratory studies reviewed and noted within normal limits. IV access is being attempted to determine if the patient can have a scan of her chest if needed. Records obtained from [place]. GI cocktail ordered for the patient. Case is turned over to attending physician at this time for disposition. SHARED APC VISIT, PHYSICIAN ATTESTATION: [id number] I performed a substantive part of the MDM during the patient?s E/M visit. I personally evaluated and examined the patient. I personally made or approved the documented management plan and acknowledge its risk of complications. LD 10:25 pm her workup here is negative. We obtained records from [facility] and she had a negative workup there as well. She is discharged home and findings were discussed with the patient. Differential Diagnosis Differential diagnosis: Likely atypical chest pain, st elevation myocardial infarction, costochondritis and chest pain Lab Data Labs: Lab Results 05/23/24 05/23/24 Range/Units 20:20 20:40 WBC 9.4 (4.0-11.0) 10^3/uL RBC 5.29 (4.20-5.40) 10^6/uL Hgb 11.6 L (12.0-16.0) g/dL Hct 38.7 (36.0-48.0) % MCV 73.2 L (81.0-99.0) fL MCH 21.9 L (26.7-34.0) pg MCHC 30.0 (29.9-35.2) g/dL RDW 15.8 H (11.0-15.0) % Plt Count 326 (150-450) 10^3/uL MPV 9.0 L (9.5-13.5) fL Neut % (Auto) 67.6 (43.0-75.0) % Lymph % (Auto) 21.4 (20.5-60.0) % [place] % (Auto) 6.4 (1.7-12.0) % Eos % (Auto) 3.0 (0.9-7.0) % Baso % (Auto) 0.7 (0.2-2.0) % Neut # (Auto) 6.3 (1.4-6.5) 10^3/uL Lymph # (Auto) 2.0 (1.2-3.8) 10^3/uL [place] # (Auto) 0.6 (0.3-0.8) 10^3/uL Eos # (Auto) 0.3 (0.0-0.7) 10^3/uL Baso # (Auto) 0.1 (0.0-0.1) 10^3/uL Abs Immat Gran (auto) 0.08 H (0.00-0.03) 10^3/uL Imm/Tot Granulo (auto) 0.9 H (0.0-0.5) % PT 10.7 (9.0-11.6) sec INR 1.01 VBG pH 7.383 (7.330-7.430) VBG pCO2 40.6 (40.0-52.0) mmHg Sodium 140 (136-145) mmol/L Potassium 4.1 (3.5-5.1) mmol/L Chloride 105 (98-107) mmol/L Carbon Dioxide 24.4 (21.0-32.0) mmol/L Anion Gap 14.7 BUN 12.0 (7.0-18.0) mg/dL Creatinine 0.80 (0.55-1.02) mg/dL Est GFR ( Amer) >60 (>=60 mL/min/1.73m^2) Est GFR (Non-Af Amer) >60 (>=60 mL/min/1.73m^2) BUN/Creatinine Ratio 15.0 Glucose 153 H (74-106) mg/dL Lactate 1.5 (0.4-2.0) mmol/L Calcium 9.1 (8.5-10.1) mg/dL Magnesium 1.9 (1.8-2.4) mg/dL Total Bilirubin 0.2 (0.2-1.0) mg/dL AST 27 (15-37) U/L ALT 31 (14-59) U/L Alkaline Phosphatase 110 (46-116) U/L Troponin I High Sens <4.0 L (4.0-51.3) pg/mL NT-Pro-B Natriuret Pep 16.0 (<=450.0) pg/mL Total Protein 7.4 (6.4-8.2) g/dL Albumin 3.1 L (3.4-5.0) g/dL Globulin 4.3 g/dL Albumin/Globulin Ratio 0.7 TSH 1.461 (0.358-3.740) uIU/mL Urine Color Lt. yellow (YELLOW) Urine Clarity Cloudy A (CLEAR) Urine pH 7.5 (5.0-9.0) Ur Specific [place] 1.015 (1.005-1.025) Urine Protein Trace (NEG/TRACE) mg/dL Urine Glucose (UA) Negative (NEGATIVE) mg/dL Urine Ketones Negative (NEGATIVE) mg/dL Urine Occult Blood Large A (NEGATIVE) Urine Nitrite Negative (NEGATIVE) Urine Bilirubin Negative (NEGATIVE) Urine Urobilinogen 0.2 (0.2-1.0) EU/dL Ur Leukocyte Esterase Negative (NEGATIVE) Urine RBC 50-75 A (0-2) #/HPF Urine WBC 0-2 A (NONE SEEN) #/HPF Ur Squamous Epith Cells Few A (NONE/RARE) #/LPF Urine Crystals Seen A (None Seen) #/HPF Amorphous Sediment Many Urine Bacteria Moderate A (NONE SEEN) #/HPF Urine Casts None seen (NONE SEEN) #/LPF Urine Mucus None seen (NONE SEEN) Ur Culture Indicated? Yes-[facility] [place] Acetone, Qual Negative (NEGATIVE) Heart Score History: Slightly/Non-Suspicious ECG: Normal Age: <45 years Risk Factors: 1 or 2 Risk Factors Troponin: <Normal Limit Total Heart Score Recommendations & Risks:: 1 Discharge Plan Discharge Chief Complaint: Chest Pain Clinical Impression: Chest pain Patient Disposition: Home, Self-Care Time of Disposition Decision: 22:25 Condition: Good Mode of Transportation: Private Vehicle Prescriptions / Home Meds: No Action cyclobenzaprine 10 mg tablet amoxicillin 500 mg capsule doxycycline hyclate 100 mg capsule tizanidine 2 mg tablet trazodone 50 mg tablet cetirizine [Allergy Relief (cetirizine)] 10 mg tablet ibuprofen 800 mg tablet nystatin 100,000 unit/gram ointment TOPICAL fluconazole 150 mg tablet sumatriptan succinate 100 mg tablet PO clobetasol 0.05 % cream TOPICAL melatonin 3 mg tablet lamotrigine 25 mg tablet hydrocortisone 2.5 % cream with perineal applicator clonidine HCl 0.2 mg tablet alprazolam 0.25 mg tablet modafinil 200 mg tablet metoclopramide HCl 5 mg tablet pantoprazole 40 mg tablet,delayed release (DR/EC) PO diphenhydramine HCl [Banophen] 25 mg capsule lidocaine 5 % adhesive patch,medicated gabapentin 300 mg capsule hydroxyzine HCl 25 mg tablet ammonium lactate 12 % cream TOPICAL gabapentin 100 mg capsule nystatin [Nystop] 100,000 unit/gram powder TOPICAL topiramate 100 mg tablet lamotrigine 100 mg tablet metoclopramide HCl 10 mg tablet amoxicillin-pot clavulanate 875-125 mg tablet modafinil 100 mg tablet melatonin 3 mg tablet extended release PO insulin lispro 100 unit/mL insulin pen SUBCUT escitalopram oxalate 10 mg tablet escitalopram oxalate 20 mg tablet insulin aspart U-100 [Novolog FlexPen U-100 Insulin] 100 unit/mL (3 mL) insulin pen SUBCUT pregabalin 25 mg capsule lisdexamfetamine [Vyvanse] 50 mg capsule budesonide-formoterol [Symbicort] 160-4.5 mcg/actuation HFA aerosol inhaler INHALATION insulin glargine [Lantus Solostar U-100 Insulin] 100 unit/mL (3 mL) insulin pen SUBCUT Spiriva Respimat 1.25 mcg/actuation mist INHALATION Print Language: Liberian Instructions: Chest Pain (ED) Additional Instructions: Follow-up with your PCP Referrals: Ritu Chambers [place] [Primary Care Provider] - 1 week
[2024-05-23 20:30] LABS: PCO2 VBG 40.6 mmHg (40.0-52.0); pH VBG 7.383 (7.330-7.430)
[2024-05-23 20:33] LABS: Basophils Absolute Auto 0.1 10^3/uL (0.0-0.1); Basophils Percent Auto 0.7 % (0.2-2.0); Eosinophils Absolute Auto 0.3 10^3/uL (0.0-0.7); Hematocrit 38.7 % (36.0-48.0); Hemoglobin 11.6 g/dL (12.0-16.0); Immature Granulocytes Abs Auto 0.08 10^3/uL (0.00-0.03); Immature Granulocytes Pct Auto 0.9 % (0.0-0.5); Lymphocytes Percent Auto 21.4 % (20.5-60.0); Mean Corpuscular Hemoglobin 21.9 pg (26.7-34.0); Mean Corpuscular Volume 73.2 fL (81.0-99.0); Monocytes Absolute Auto 0.6 10^3/uL (0.3-0.8); Monocytes Percent Auto 6.4 % (1.7-12.0); Neutrophils Absolute Auto 6.3 10^3/uL (1.4-6.5); Neutrophils Percent Auto 67.6 % (43.0-75.0); Platelet Count 326 10^3/uL (150-450); Red Blood Count 5.29 10^6/uL (4.20-5.40); Red Cell Distribution Width 15.8 % (11.0-15.0); White Blood Count 9.4 10^3/uL (4.0-11.0)
[2024-05-23 20:47] LABS: Acetone NEGATIVE (NEGATIVE); INR 1.01; Prothrombin Time 10.7 sec (9.0-11.6)
[2024-05-23 20:48] LABS: Lactate/Lactic Acid 1.5 mmol/L (0.4-2.0)
[2024-05-23 20:54] LABS: Alanine Aminotransferase 31 U/L (14-59); Albumin Globulin Ratio 0.7; Albumin Level 3.1 g/dL (3.4-5.0); Alkaline Phosphatase 110 U/L (46-116); Anion Gap 14.7; Aspartate Amino Transferase 27 U/L (15-37); Bilirubin Total 0.2 mg/dL (0.2-1.0); Calcium 9.1 mg/dL (8.5-10.1); Carbon Dioxide 24.4 mmol/L (21.0-32.0); Chloride 105 mmol/L (98-107); Estimated GFR (African America >60 (>=60 mL/min/1.73m^2); Estimated GFR (Non-African Ame >60 (>=60 mL/min/1.73m^2); Globulin 4.3 g/dL; Glucose 153 mg/dL (74-106); Potassium 4.1 mmol/L (3.5-5.1); Sodium 140 mmol/L (136-145); Total Protein 7.4 g/dL (6.4-8.2)
[2024-05-23 20:55] LABS: Bilirubin Urine NEGATIVE (NEGATIVE); Blood Urine LARGE (NEGATIVE); Clarity Urine CLOUDY (CLEAR); Color Urine LT. YELLOW (YELLOW); Glucose Urine UA NEGATIVE (NEGATIVE); Ketones Urine NEGATIVE (NEGATIVE); Leukocyte Esterase Urine NEGATIVE (NEGATIVE); Nitrite Urine NEGATIVE (NEGATIVE); Protein Urine TRACE mg/dL (NEG/TRACE); Specific Gravity Urine 1.015 (1.005-1.025); Urobilinogen Urine 0.2 EU/dL (0.2-1.0); pH Urine 7.5 (5.0-9.0)
[2024-05-23 20:57] LABS: Magnesium 1.9 mg/dL (1.8-2.4); Thyroid Stimulating Hormone 1.461 uIU/mL (0.358-3.740); Troponin I High Sensitivity <4.0 pg/mL (4.0-51.3)
[2024-05-23 21:08] LABS: Amorphous Sediment Urine MANY; Bacteria Urine MODERATE #/HPF (NONE SEEN); Cast Seen? NONE SEEN #/LPF (NONE SEEN); Crystals Seen? Seen #/HPF (None Seen); Mucus Urine NONE SEEN (NONE SEEN); RBC Urine 50-75 #/HPF (0-2); WBC Urine 0-2 #/HPF (NONE SEEN)
[2024-05-23 21:09] LABS: Urine Culture Indicated YES-FRMC
[2024-05-23 21:10] LABS: Squamous Epithelial Cell Urine FEW #/LPF (NONE/RARE)
[2024-05-23 22:36] VITALS: BP 99/67; PULSE 88; O2SAT 95
== END 2024-05-23 22:36 | disposition home or self-care (01) ==
PROVIDERS: Physician Assistant; Emergency Provider Emergency Medicine; PCP Student in an Organized Health Care Education/Training Program
DX: R07.89 Other chest pain (principal); R82.998 Other abnormal findings in urine; R06.02 Shortness of breath; F41.9 Anxiety disorder, unspecified
CPT/HCPCS: 36415; 80053; 81001; 82009; 82800; 83605; 83735; 83880; 84443; 84484; 85025; 85610; 87086; 87150; 93005; 99285